=== PATIENT | female | born 1975 ===

== ENCOUNTER 2025-08-10 08:09 | Outpatient (RCR) | payer OTHER, SELFPAY | END 2025-08-10 23:59 | disposition home or self-care (01) | LOC: ROT 08:09 | PROVIDERS: ATTENDING PHYSICIAN Orthopaedic Surgery; FAMILY PHYSICIAN Student in an Organized Health Care Education/Training Program | DX: Z47.89 Encounter for other orthopedic aftercare (principal); M18.11 Unilateral primary osteoarthritis of first carpometacarpal joint, right hand; Z73.6 Limitation of activities due to disability | CPT/HCPCS: 97022; 97110; 97166; 97535 ==

== ENCOUNTER 2025-08-15 09:25 | Outpatient (RCR) | payer OTHER, SELFPAY | END 2025-08-15 23:59 | disposition home or self-care (01) | LOC: ROT 09:25 | PROVIDERS: ATTENDING PHYSICIAN Orthopaedic Surgery; FAMILY PHYSICIAN Student in an Organized Health Care Education/Training Program | DX: Z47.89 Encounter for other orthopedic aftercare (principal); M18.11 Unilateral primary osteoarthritis of first carpometacarpal joint, right hand; Z73.6 Limitation of activities due to disability | CPT/HCPCS: 97010; 97110 ==